=== PATIENT | female | born 1985 | race Caucasian/White ===

== ENCOUNTER 2024-09-18 09:23 | Outpatient (CLI) | payer BC, SELFPAY | END 2024-09-18 09:24 | disposition home or self-care (01) | PROVIDERS: Visit Provider Advanced Practice Midwife | DX: O20.9 Hemorrhage in early pregnancy, unspecified (principal) | CPT/HCPCS: 84702; 86850; 86900; 86901 ==

== ENCOUNTER 2024-09-21 11:04 | Outpatient (CLI) | payer BC, SELFPAY | END 2024-09-21 11:05 | disposition home or self-care (01) | LOC: NFLDREF 09-24 02:00 | PROVIDERS: Visit Provider Advanced Practice Midwife | DX: O20.9 Hemorrhage in early pregnancy, unspecified (principal) | CPT/HCPCS: 84702 ==

== ENCOUNTER 2025-02-15 09:00 | Outpatient (CLI) | payer BC, SELFPAY ==
--- NOTE | 2025-02-15 09:15 | CRLHL7_ITS ---
For Patients: As a result of the Century Cures Act, medical imaging exams and procedure reports are released immediately into your electronic medical record. You may view this report before your referring provider. If you have questions, please contact your health care provider. INDICATION: Check viability and dates TECHNIQUE: Transabdominal scanning was performed. COMPARISON: None FINDINGS: There is a living IUP with gestational age of 12 weeks 1 day by LMP 11 weeks 3 days by today`s crown-rump length. EDC based on LMP is 08/29/2025. The embryonic heart rate is measured at 167 beats per minute. The placenta is not yet formed. No subchorionic hemorrhage is evident. The ovaries are normal is size and shape. The right ovary measures 3.8 x 1.8 x 1.8 cm and the left 3.8 x 2.2 x 1.7 cm. No adnexal mass or free fluid is apparent. IMPRESSION: 1. Living IUP with gestational age of 12 weeks 1 day by LMP 11 weeks 3 days by today`s crown-rump length. EDC based on LMP is 08/29/2025. 2. No complication evident. Dictated by Easton Dawson MD @ 02/15/2025 12:20:32 PM (Electronically Signed)
== END 2025-02-15 09:01 | disposition home or self-care (01) ==
LOC: US 09:00
PROVIDERS: Visit Provider Advanced Practice Midwife
DX: Z34.91 Encounter for supervision of normal pregnancy, unspecified, first trimester (principal); Z3A.12 12 weeks gestation of pregnancy
CPT/HCPCS: 76801